=== PATIENT | female | born 1980 | race Caucasian/White ===

== ENCOUNTER → 2016-12-16 | Outpatient (CLI) | payer OTHER ==
--- NOTE | 2016-12-17 14:56 | US ---
EXAM DATE: 12/16/16 PATIENT'S AGE: 36 Patient: KEIRA OSPINA Facility: [place], [place] Site . Site : 1980 Study: US Pelvis [id number]/28/2017 4:50:07 PM Ordering Physician: Juancho Olmedo Final Report: INDICATION: Secondary amenorrhea. TECHNIQUE: Multiple transvaginal sonographic images of the pelvis COMPARISON: None available FINDINGS: Uterus: Retroverted, measuring 7.1 x 3.0 x 4.2 cm. Normal echotexture of the myometrium. No masses. Cervical nabothian cysts. Endometrium: 6 mm in thickness. No sign of endometrial mass or fluid. Right ovary: 4.2 x 2.5 x 2.9 cm. Multiple small ovarian follicles. Normal arterial and venous blood flow. Left ovary: 3.1 x 1.4 x 2.0 cm. Multiple small ovarian follicles. Normal arterial and venous blood flow. Cul-de-sac: No significant free fluid. IMPRESSION: Multiple small follicles in both ovaries. Correlate for polycystic ovarian syndrome, although the ovaries are not significantly enlarged. If indicated, followup detailed evaluation of the ovaries can be considered. Dictated by Alan Belal MD @ 12/16/2016 9:10:13 PM Dictated by: Alan Bella MD @ 12/16/2016 21:10:18 (Electronic Signature) Report Signed by Proxy and Original Signed Document filed in the Medical Record. [facility]Mart
== END ==
LOC: MW.US 15:20
PROVIDERS: ATTEND Nurse Practitioner Women's Health
DX: N91.1 Secondary amenorrhea (principal)
CPT/HCPCS: 76830; 76830-26

== ENCOUNTER 2019-05-31 17:17 | Inpatient (IN) | payer OTHER ==
[2019-05-31] MEDS ORDERED: Butorphanol 1 MG/ML SDV IVPUSH PRN (17:25)
[2019-05-31] MEDS ORDERED: Misoprostol 200 MCG Tab PO PRN (17:25)
[2019-05-31] MEDS ORDERED: Water For Irrigation,Sterile 1,000 ML Container IRR PRN (17:25)
[2019-05-31] MEDS ORDERED: Sodium Chloride 0.9% 2.5 ML Syringe FLUSH PRN (17:25)
[2019-05-31] MEDS ORDERED: Sodium Chloride 0.9% 10 ML Syringe FLUSH PRN (17:25)
[2019-05-31] MEDS ORDERED: Methylergonovine 0.2 MG/1 ML Amp IM PRN (17:25)
[2019-05-31] MEDS ORDERED: Carboprost Tromethamine 250 MCG/1 ML Amp IM PRN (17:25)
[2019-05-31] MEDS ORDERED: Terbutaline 1 MG/ML SDV SUBCUT PRN (17:25)
[2019-05-31] MEDS ORDERED: Sodium Chloride 0.9% 10 ML SDV IV PRN (17:25)
[2019-05-31] MEDS ORDERED: Nalbuphine 10 MG/1 ML Vial IVPUSH PRN (17:25)
[2019-05-31] MEDS ORDERED: Lidocaine 1% 50 ML MDV INJECT PRN (17:25)
[2019-05-31] MEDS ORDERED: Tranexamic Acid 1,000 MG in Sodium Chloride 0.9% 100 ML IV PRN (17:25)
[2019-05-31] MEDS ORDERED: Ondansetron 4 MG/2 ML SDV IVPUSH PRN (17:25)
[2019-05-31] MEDS ORDERED: Oxytocin/0.9 % Sodium Chloride 30 UNIT/500 ML BAG IV SCH ×2 (17:30)
[2019-05-31] MEDS: Misoprostol 25 MCG (1/4 of 100 MCG) Tab VAG PRN ×2 (18:10→23:39)
[2019-05-31] MEDS: Lactated Ringers 1,000 ML IV SCH (22:04)
[2019-06-01] MEDS: Misoprostol 25 MCG (1/4 of 100 MCG) Tab VAG PRN (03:50)
--- NOTE | 2019-06-01 08:17 | PCM.PREANE ---
Preanesthetic Assessment - Anesthesia/Transfusion/Family Hx Anesthesia History: Prior Anesthesia Without Reaction Family History of Anesthesia Reaction: No Transfusion History: No Prior Transfusion(s) - Review of Systems General: No Symptoms Pulmonary: No Symptoms Cardiovascular: No Symptoms Gastrointestinal: No Symptoms Neurological: No Symptoms Other: Reports: None - Physical Assessment Height: 5 ft 7 in Weight: 90.718 kg ASA Class: 2 Mental Status: Alert & Oriented x3 Airway Class: Mallampati = 2 Dentition: Reports: Normal Dentition Thyro-Mental Finger Breadths: 3 Mouth Opening Finger Breadths: 3 ROM/Head Extension: Full Lungs: Clear to Auscultation, Normal Respiratory Effort Cardiovascular: Regular Rate, Regular Rhythm - Lab Values: Laboratory Last Values WBC 11.98 K/uL (4.0-11.0) H 05/31/19 17:48 RBC 4.12 M/uL (4.30-5.90) L 05/31/19 17:48 Hgb 12.5 g/dL (12.0-16.0) 05/31/19 17:48 Hct 37.4 % (36.0-46.0) 05/31/19 17:48 MCV 90.8 fL (80.0-98.0) 05/31/19 17:48 MCH 30.3 pg (27.0-32.0) 05/31/19 17:48 MCHC 33.4 g/dL (31.0-37.0) 05/31/19 17:48 RDW Std Deviation 52.0 fl (28.0-62.0) 05/31/19 17:48 RDW Coeff of Jonatan 16 % (11.0-15.0) H 05/31/19 17:48 Plt Count 255 K/uL (150-400) 05/31/19 17:48 MPV 9.50 fL (7.40-12.00) 05/31/19 17:48 Nucleated RBC % 0.0 /100WBC 05/31/19 17:48 Nucleated RBCs # 0 K/uL 05/31/19 17:48 Urine Color YELLOW 05/31/19 22:40 Urine Appearance CLEAR 05/31/19 22:40 Urine pH 6.0 (5.0-8.0) 05/31/19 22:40 Ur Specific [place] <= 1.005 (1.001-1.035) 05/31/19 22:40 Urine Protein NEGATIVE mg/dL (NEGATIVE) 05/31/19 22:40 Urine Glucose (UA) NEGATIVE mg/dL (NEGATIVE) 05/31/19 22:40 Urine Ketones NEGATIVE mg/dL (NEGATIVE) 05/31/19 22:40 Urine Occult Blood NEGATIVE (NEGATIVE) 05/31/19 22:40 Urine Nitrite NEGATIVE (NEGATIVE) 05/31/19 22:40 Urine Bilirubin NEGATIVE (NEGATIVE) 05/31/19 22:40 Urine Urobilinogen 0.2 EU/dL (<2.0) 05/31/19 22:40 Ur Leukocyte Esterase NEGATIVE (NEGATIVE) 05/31/19 22:40 Blood Type O NEGATIVE 05/31/19 17:48 Antibody Screen NEGATIVE 05/31/19 17:48 - Allergies Allergies/Adverse Reactions: Allergies Allergy/AdvReac Type Severity Reaction Status Date / Time No Known Allergies Allergy Verified 05/31/19 17:40 - Acknowledgements Anesthesia Type Planned: Epidural Pt an Appropriate Candidate for the Planned Anesthesia: Yes Alternatives and Risks of Anesthesia Discussed w Pt/Guardian: Yes Pt/Guardian Understands and Agrees with Anesthesia Plan: Yes PreAnesthesia Questionnaire - Past Health History Medical/Surgical History: Denies Medical/Surgical History HEENT History: Reports: None Cardiovascular History: Reports: None Respiratory History: Reports: None Gastrointestinal History: Reports: GERD Genitourinary History: Reports: None 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: : 1 Para: 0 LMP (Approximate): Musculoskeletal History: Reports: None Neurological History: Reports: None Psychiatric History: Reports: None Endocrine/Metabolic History: Reports: Obesity/BMI 30+ Hematologic History: Reports: None Immunologic History: Reports: None Oncologic (Cancer) History: Reports: None Dermatologic History: Reports: None - Infectious Disease History Infectious Disease History: Reports: None - SUBSTANCE USE Smoking Status *Q: Never Smoker Recreational Drug Use History: No - HOME MEDS Home Medications: Home Meds #103/Iron Fumarate/Fa [ ] 1 tab PO DAILY 05/31/19 [ History] - CURRENT (IN HOUSE) MEDS Current Meds: Current Medications Butorphanol Tartrate (Stadol) 1 mg IVPUSH Q1H PRN PRN Reason: Pain Last Admin: 06/01/19 07:41 Dose: 1 mg Carboprost Tromethamine (Hemabate Ds) 250 mcg IM ASDIRECTED PRN PRN Reason: Post Hemorrhage Lactated Ringer's (Ringers, Lactated) 1,000 mls @ 150 mls/hr IV ASDIRECTED PIPPA Last Admin: 05/31/19 22:04 Dose: 999 mls/hr Oxytocin/Sodium Chloride (Oxytocin 30 Unit/500 Ml-Ns) 30 unit in 500 mls @ 500 mls/hr IV TITRATE PIPPA Oxytocin/Sodium Chloride (Oxytocin 30 Unit/500 Ml-Ns) 30 unit in 500 mls @ 2 mls/hr IV TITRATE PIPPA; Protocol Tranexamic Acid 1,000 mg/ (Sodium Chloride) 110 mls @ 660 mls/hr IV ONETIME PRN PRN Reason: Bleeding Lidocaine HCl (Xylocaine 1%) 50 ml INJECT ONETIME PRN PRN Reason: Laceration repair Methylergonovine Maleate (Methergine) 0.2 mg IM ASDIRECTED PRN PRN Reason: Post Hemorrhage Misoprostol (Cytotec) 200 mcg PO ONETIME PRN PRN Reason: Post Hemorrhage Misoprostol (Cytotec) 25 mcg VAG Q4H PRN PRN Reason: Cervical Ripening Last Admin: 06/01/19 03:50 Dose: 25 mcg Nalbuphine HCl (Nubain) 10 mg IVPUSH Q1H PRN PRN Reason: Pain (severe 7-10) Ondansetron HCl (Zofran) 4 mg IVPUSH Q4H PRN PRN Reason: Nausea/Vomiting Sodium Chloride (Saline Flush) 10 ml FLUSH ASDIRECTED PRN PRN Reason: Keep Vein Open Sodium Chloride (Saline Flush) 2.5 ml FLUSH ASDIRECTED PRN PRN Reason: Keep Vein Open Sodium Chloride (Normal Saline) 10 ml IV ASDIRECTED PRN PRN Reason: IV Use Sterile Water (Sterile Water For Irrigation) 1,000 ml IRR ASDIRECTED PRN PRN Reason: delivery Terbutaline Sulfate (Brethine) 0.25 mg SUBCUT ASDIRECTED PRN PRN Reason: Tacysystole Discontinued Medications Fentanyl/Bupivacaine HCl (Wybhvzzk-Nhyuz-Fm 2 Mcg/Ml-0.125%) Confirm Administered Dose 100 mls @ as directed .ROUTE .[facility] Stop: 06/01/19 07:46
[2019-06-01] MEDS: Lactated Ringers 1,000 ML IV SCH ×2 (08:23→17:59)
[2019-06-01] MEDS ORDERED: Labetalol 100 MG/20 ML MDV IVPUSH ONE (12:16)
[2019-06-01] MEDS ORDERED: Bupivacaine 0.5% 10 ML SDV ONE ×2 (12:18→19:05)
[2019-06-01] MEDS ORDERED: ceFAZolin 1 GM Vial ONE (19:13)
[2019-06-01] MEDS ORDERED: Sodium Chloride 0.9% 20 ML ONE (19:13)
[2019-06-01] MEDS ORDERED: Oxytocin/0.9 % Sodium Chloride 30 UNIT/500 ML BAG ONE (19:17)
[2019-06-01] MEDS ORDERED: Ondansetron 4 MG/2 ML SDV ONE (19:20)
[2019-06-01] MEDS ORDERED: Morphine PF 10 MG/10 ML SDV ONE (19:22)
[2019-06-01] MEDS ORDERED: Nalbuphine 10 MG/1 ML Vial IVPUSH PRN (19:34)
[2019-06-01] MEDS ORDERED: Midazolam 1 MG/ML 2 ML SDV ONE (19:34)
[2019-06-01] MEDS ORDERED: fentaNYL 100 MCG/2 ML SDV IVPUSH PRN (19:34)
[2019-06-01] MEDS ORDERED: Acetaminophen/oxyCODONE 325-5 MG Tab PO PRN ×3 (19:34→20:33)
[2019-06-01] MEDS ORDERED: ePHEDrine 50 MG/ML SDV ONE (20:15)
--- NOTE | 2019-06-01 20:18 | PCM.OPNOTE ---
- General Post-Op/Procedure Note Date of Surgery/Procedure: 06/01/19 Operative Procedure(s): Primary LTCS Findings: section of liveborn female . Apgars 7/9. Weight 3820g. 3vc. Placenta intact. Pre Op Diagnosis: 40/5 IUP induction for AMA/post dates. Primary LTCS for arrest of descent Post-Op Diagnosis: same Anesthesia Technique: Epidural Primary Surgeon: Alyssa Westbrook Patch Sander: Zuleima Bell Role of Patch Sander: 4th year medical student Fluid Replacement, Intraop: 600 Output, Urine Amount: 100 EBL in mLs: 700 Condition: Good
[2019-06-01] MEDS ORDERED: Lanolin 100% Cream 7 GM Tube TOP PRN (20:33)
[2019-06-01] MEDS ORDERED: Aluminum Hydroxide/Magnesium Hydroxide/Simethicone Susp 30 ML Cup PO PRN (20:33)
[2019-06-01] MEDS ORDERED: diphenhydrAMINE 50 MG/ML SDV IVPUSH PRN (20:33)
[2019-06-01] MEDS ORDERED: Ondansetron 4 MG/2 ML SDV IVPUSH PRN (20:33)
[2019-06-01] MEDS ORDERED: Bisacodyl 10 MG Supp RECTAL PRN (20:33)
[2019-06-01] MEDS: Ketorolac 30 MG/ML SDV IVPUSH SCH (20:45)
[2019-06-01] MEDS ORDERED: Lactated Ringers 1,000 ML IV SCH (20:45)
--- NOTE | 2019-06-01 20:49 | PCM.POSTAN ---
POST ANESTHESIA ASSESSMENT - MENTAL STATUS Mental Status: Alert, Oriented - VITAL SIGNS Vital Signs: Last Vital Signs Temp 98.2 F 06/01/19 20:06 Pulse 103 H 06/01/19 20:42 Resp 12 06/01/19 20:42 BP 113/65 06/01/19 20:42 Pulse Ox 100 06/01/19 20:42 - RESPIRATORY Respiratory Status: Respiratory Rate WNL, Airway Patent, O2 Saturation Stable - CARDIOVASCULAR CV Status: Pulse Rate WNL, Blood Pressure Stable - GASTROINTESTINAL GI Status: No Symptoms - PAIN Pain Score: 1 - POST OP HYDRATION Hydration Status: Adequate & Stable
[2019-06-01] MEDS: Docusate Sodium 100 MG Cap PO SCH (23:50)
[2019-06-02] MEDS: Simethicone 80 MG Tab.Chew PO SCH ×4 (00:10→18:19)
[2019-06-02] MEDS: Ketorolac 30 MG/ML SDV IVPUSH SCH ×4 (03:01→21:00)
--- NOTE | 2019-06-02 03:58 | OR ---
SURGEON: Alyssa Westbrook M.D. DATE OF PROCEDURE: 06/01/2019 PREOPERATIVE DIAGNOSES: 1. A 40 and 5 weeks' intrauterine . 2. Arrest of descent. POSTOPERATIVE DIAGNOSES: 1. A 40 and 5 weeks' intrauterine . 2. Arrest of descent. PROCEDURE: Primary low-transverse section. PRIMARY SURGEON: Alyssa Westbrook M.D. BODY AND FENDER MECHANIC: Marla Bell MS4. ANESTHESIA: Epidural. ESTIMATED BLOOD LOSS: 700 mL. FLUIDS: 600 mL of crystalloid in OR. COMPLICATIONS: None. FINDINGS: Viable female. score 7 at 1 minute and 9 at 5 minutes. Weight of 3820 g. Intact placenta, 3-vessel cord, normal-appearing pelvis. DISPOSITION: to [facility], mom in PACU, stable. PROCEDURE DETAILS: Daly is a 39-year-old primigravida at 40 and 4 weeks' gestation, who presented on the evening of 05/31/2019, for scheduled induction of labor due to past-due and advanced maternal age. The patient responded nicely to Cytotec ripening. By the following morning, she was found to be 4 cm. She underwent regional anesthesia in the form of an epidural, had spontaneous rupture of membranes. Clear fluid was noted. Was initiated on Pitocin augmentation. She responded nicely to this and progressed throughout the afternoon hours. Shortly after 4 p.m., she was found to be complete, 100% effaced, +2 station, began pushing efforts. She was able to push to a +3 station. At that time, felt baby to be LOP and rotated to an OA position. Continued with pushing efforts. At the point of pushing for approximately 2.5 hours and still being a +3 station, did discuss with her the option of continuing with pushing efforts, but she is tiring, proceeding with operative vaginal delivery versus . The patient has opted to proceed with an operative vaginal delivery. Risks of vacuum-assisted vaginal delivery were discussed with her and her , including increased risk for maternal vaginal trauma, cephalohematoma, and intracranial bleeding. They voiced understanding and agreed to proceed. position was again palpated. Sagittal suture was palpated. Estimated weight was felt to be 4682-0103 g. The vacuum was gently placed after palpating sutures, and with the next contraction, was able to insufflate to the green zone, released the vacuum between contractions, attempted a vacuum- assisted delivery for approximately 30 minutes of total time, approximately 10 minutes of actual vacuum time. There were 2 pop-offs during this interval. However, we were only able to deliver to a +4 station. At this juncture, I felt that the risk of shoulder dystocia was high given head is not readily delivering. Discussed with the patient, her , and at this junction, they opted to proceed with C- section. Risks of procedure were discussed with her including infection; bleeding; possible trauma to the surrounding bowel, bladder, ureters; in case of excessive blood loss, need for blood transfusion; rare lifesaving circumstances; need for hysterectomy; risk for thromboembolic event; and risk of anesthesia. Proper consent was obtained. Anesthesia and nursing supervisor dock were notified. The patient was taken to the operating room, where she underwent a bolus of her epidural, was placed in dorsal supine position with leftward tilt, and then was placed in a frog-leg position. She was prepped and draped in usual sterile fashion. SCDs to lower extremities. West to gravity. Received Ancef prophylactically. Time-out was performed, was able to elevate the head out of the pelvis prior to proceeding with checking for adequate anesthesia. After the patient was prepped and draped in usual sterile fashion, time-out was performed, anesthesia was found to be adequate. A Pfannenstiel skin incision was now created, carried down to the level of the rectus fascia, which was incised in midline, lateralized to either side sharply and bluntly, superior aspect of the fascia tented upward, dissected sharply and bluntly away from the underlying muscles. In a similar manner, it was performed at the inferior aspect of the fascia. Rectus muscles in the midline. Peritoneum was entered. Rectus muscle and peritoneum were now lateralized. Uterine position and position palpated. Self-retaining retractor was gently placed. Uterovesical reflection was visualized. Bladder flap was created sharply and bluntly. Bladder was mobilized from the lower uterine segment. Labor and Delivery staff was able to provide a vaginal hand with the low transverse hysterotomy was now performed. Uterine cavity was entered with blunt end scalpel. Hysterotomy was lateralized bluntly. While I was attempting to deliver the 's head, the Labor and Delivery staff was able to elevate the head, was able to secure the head, flexed and delivered from the pelvis. The fetus did remain in OA position. The head was delivered followed by anterior shoulder, pushed the remaining of the body. 's oropharynx and nares bulb suctioned. Infant was crying and pink. Cord was clamped x2 and cut. was handed off to the attending complex director. Cord arterial, cord venous, cord blood sampling were obtained. Light pressure was applied while the placenta was now delivered. Uterine cavity was cleared of all clot and debris. Hysterotomy was repaired using 0 Vicryl in continuous running locked fashion followed by re-imbricating layer. Area of oozing along the midline was replicated with 2 [id number] sutures. Hemostasis thereafter evident. Posterior aspect of the uterus inspected. No defects or hematomas found to be forming. The area was well irrigated and suction dried. Uterus was returned to the abdominal cavity. Colonic gutters were cleared of all clot and debris, well irrigated and suction dried. Hysterotomy was once again inspected and found to be hemostatic. Self-retaining retractor now gently removed. The bladder blade was placed and once again inspected the hysterotomy and was once again found to be hemostatic. Rectus muscles and peritoneum were reapproximated using 0 Vicryl with inverted mattress suture technique. Anterior aspect of the muscle and posterior aspect of the fascia closely inspected. Any areas of oozing were cauterized. The rectus fascia was reapproximated using 0 Vicryl in continuous running fashion beginning laterally on either side and meeting in the midline. Subcutaneous tissue was well irrigated and suction dried. Any areas of oozing were now cauterized. The skin edges were reapproximated using 3-0 Vicryl on a Pool needle in subcuticular fashion followed by half-inch Steri-Strips and Mastisol. Uterus remained firm. Sponge, instrument, and needle count was correct x2. The patient tolerated the procedure well overall. She will go to PACU in stable condition, to [facility]. NUNO / RAFAELA /[id number] DORIS
--- NOTE | 2019-06-02 07:20 | PCM.PNPP ---
<Zuleima Bell - Last Filed: 06/02/19 07:20> - General Info Date of Service: 06/02/19 Functional Status: Reports: Pain Controlled, Tolerating Diet, Incentive Spirometry. Denies: Ambulating, Urinating - Review of Systems General: Reports: No Symptoms. Denies: Fever, Chills HEENT: Reports: No Symptoms. Denies: Headaches Pulmonary: Reports: No Symptoms. Denies: Shortness of Breath Cardiovascular: Reports: No Symptoms. Denies: Chest Pain, Palpitations Gastrointestinal: Reports: Abdominal Pain (Incisional soreness ) Genitourinary: Reports: No Symptoms Musculoskeletal: Reports: No Symptoms Skin: Reports: No Symptoms Neurological: Reports: No Symptoms Psychiatric: Reports: No Symptoms - General Info Date of Service: 06/02/19 - Patient Data Vital Signs - Most Recent: Last Vital Signs Temp 97.0 F 06/02/19 04:00 Pulse 87 06/02/19 04:00 Resp 14 06/02/19 06:00 BP 121/73 06/02/19 04:00 Pulse Ox 100 06/02/19 06:00 Weight - Most Recent: 90.718 kg I&O - Last 24 Hours: Intake & Output 06/01/19 06/02/19 06/02/19 22:59 06:59 14:59 Intake Total 1600 923 Output Total 100 1375 Balance 1500 -452 Lab Results - Last 24 Hours: Laboratory Results - last 24 hr 06/01/19 06/02/19 Range/Units 19:28 05:30 Hgb 10.0 L (12.0-16.0) g/dL Hct 30.3 L (36.0-46.0) % Cord ABG pH 7.314 (7.18-7.38) Cord ABG Base Excess -9 (-10--2) Cord VBG pH 7.260 (7.25-7.45) Cord VBG Base Excess -9 (-10--2) Med Orders - Current: Current Medications Al Hydroxide/Mg Hydroxide (Mag-Al Plus) 30 ml PO Q8H PRN PRN Reason: Heartburn Bisacodyl (Dulcolax) 10 mg RECTAL ONETIME PRN PRN Reason: Constipation Carboprost Tromethamine (Hemabate Ds) 250 mcg IM ASDIRECTED PRN PRN Reason: Post Hemorrhage Diphenhydramine HCl (Benadryl) 25 mg IVPUSH Q6H PRN PRN Reason: Itching or Nausea Docusate Sodium (Colace) 100 mg PO BID [facility] Last Admin: 06/01/19 23:50 Dose: Not Given Emollient Ointment (Lansinoh Hpa) 0 gm TOP ASDIRECTED PRN PRN Reason: Sore Nipples Fentanyl (Sublimaze) 50 mcg IVPUSH Q5M PRN PRN Reason: Pain (severe 7-10) Stop: 06/02/19 19:35 Oxytocin/Sodium Chloride (Oxytocin 30 Unit/500 Ml-Ns) 30 unit in 500 mls @ 500 mls/hr IV [facility]ITRATE [facility] Oxytocin/Sodium Chloride (Oxytocin 30 Unit/500 Ml-Ns) 30 unit in 500 mls @ 2 mls/hr IV [facility]; Protocol Last Titration: 06/01/19 18:09 Dose: 20 munits/min, 20 mls/hr Tranexamic Acid 1,000 mg/ (Sodium Chloride) 110 mls @ 660 mls/hr IV ONETIME PRN PRN Reason: Bleeding Lactated Ringer's (Ringers, Lactated) 1,000 mls @ 125 mls/hr IV ASDIRECTED [facility] Last Admin: 06/02/19 02:32 Dose: 125 mls/hr Ibuprofen (Motrin) 800 mg PO Q8H PRN PRN Reason: mild pain or fever Ketorolac Tromethamine (Toradol) 30 mg IVPUSH Q6H [facility] Stop: 06/02/19 21:01 Last Admin: 06/02/19 03:01 Dose: 30 mg Methylergonovine Maleate (Methergine) 0.2 mg IM ASDIRECTED PRN PRN Reason: Post Hemorrhage Nalbuphine HCl (Nubain) 10 mg IVPUSH Q1H PRN PRN Reason: Pain (severe 7-10) Nalbuphine HCl (Nubain) 2.5 mg IVPUSH Q3H PRN PRN Reason: Pruritis Stop: 06/02/19 19:35 Ondansetron HCl (Zofran) 4 mg IVPUSH Q4H PRN PRN Reason: Nausea/Vomiting Oxycodone/Acetaminophen (Percocet 325-5 Mg) 1 tab PO ONETIME PRN PRN Reason: Pain (moderate 4-6) Oxycodone/Acetaminophen (Percocet 325-5 Mg) 1 tab PO Q4H PRN PRN Reason: Pain (moderate 4-6) Oxycodone/Acetaminophen (Percocet 325-5 Mg) 2 tab PO Q4H PRN PRN Reason: Pain (moderate 4-6) Simethicone (Simethicone) 160 mg PO QID [facility] Last Admin: 06/02/19 06:06 Dose: 160 mg Sodium Chloride (Saline Flush) 10 ml FLUSH ASDIRECTED PRN PRN Reason: Keep Vein Open Sodium Chloride (Saline Flush) 2.5 ml FLUSH ASDIRECTED PRN PRN Reason: Keep Vein Open Sodium Chloride (Normal Saline) 10 ml IV ASDIRECTED PRN PRN Reason: IV Use Discontinued Medications Bupivacaine HCl (Sensorcaine-Mpf 0.5%) Confirm Administered Dose 10 ml .ROUTE .STK-MED ONE Stop: 06/01/19 12:19 Bupivacaine HCl (Sensorcaine-Mpf 0.5%) Confirm Administered Dose 20 ml .ROUTE .STK-MED ONE Stop: 06/01/19 19:06 Butorphanol Tartrate (Stadol) 1 mg IVPUSH Q1H PRN PRN Reason: Pain Last Admin: 06/01/19 07:41 Dose: 1 mg Cefazolin Sodium (Ancef) Confirm Administered Dose 2 gm .ROUTE .STK-MED ONE Stop: 06/01/19 19:14 Ephedrine Sulfate (Ephedrine Sulfate) Confirm Administered Dose 50 mg .ROUTE .STK-MED ONE Stop: 06/01/19 20:16 Lactated Ringer's (Ringers, Lactated) 1,000 mls @ 150 mls/hr IV ASDIRECTED [facility] Last Admin: 06/01/19 17:59 Dose: 150 mls/hr Fentanyl/Bupivacaine HCl (Cohqedjg-Wejpg-Kp 2 Mcg/Ml-0.125%) Confirm Administered Dose 100 mls @ as directed .ROUTE .STK-MED ONE Stop: 06/01/19 07:46 Fentanyl/Bupivacaine HCl (Sykifwvx-Dbuer-As 2 Mcg/Ml-0.125%) Confirm Administered Dose 100 mls @ as directed .ROUTE .STK-MED ONE Stop: 06/01/19 15:03 Sodium Chloride (Normal Saline) Confirm Administered Dose 20 mls @ as directed .ROUTE .STK-MED ONE Stop: 06/01/19 19:14 Oxytocin/Sodium Chloride (Oxytocin 30 Unit/500 Ml-Ns) Confirm Administered Dose 30 unit in 500 mls @ as directed .ROUTE .STK-MED ONE Stop: 06/01/19 19:18 Labetalol HCl (Normodyne) 10 mg IVPUSH ONETIME ONE; Protocol Stop: 06/01/19 12:17 Last Admin: 06/01/19 12:34 Dose: 10 mg Lidocaine HCl (Xylocaine 1%) 50 ml INJECT ONETIME PRN PRN Reason: Laceration repair Midazolam HCl (Versed 1 Mg/Ml) Confirm Administered Dose 2 mg .ROUTE .STK-MED ONE Stop: 06/01/19 19:35 Misoprostol (Cytotec) 200 mcg PO ONETIME PRN PRN Reason: Post Hemorrhage Misoprostol (Cytotec) 25 mcg VAG Q4H PRN PRN Reason: Cervical Ripening Last Admin: 06/01/19 03:50 Dose: 25 mcg Morphine Sulfate (Duramorph Pf) Confirm Administered Dose 10 mg .ROUTE .STK-MED ONE Stop: 06/01/19 19:23 Ondansetron HCl (Zofran) 4 mg IVPUSH Q4H PRN PRN Reason: Nausea/Vomiting Ondansetron HCl (Zofran) Confirm Administered Dose 4 mg .ROUTE .STK-MED ONE Stop: 06/01/19 19:21 Sterile Water (Sterile Water For Irrigation) 1,000 ml IRR ASDIRECTED PRN PRN Reason: delivery Terbutaline Sulfate (Brethine) 0.25 mg SUBCUT ASDIRECTED PRN PRN Reason: Tacysystole - Infant Interaction Infant Disposition, : [facility] to [facility] Interaction: Unable to Hold Infant at this Time Feeding: Other (see below) (Has not attempted BF yet as infant in nursery. Pumped 1mL. Will attempt today) Support Person: - Recovery Exam Fundal Tone: Firm Fundal Level: 1 Fingerbreadths Below Umbilicus Fundal Placement: Midline Lochia Amount: None Lochia Color: Rubra/Red Perineum Description: Intact, Minimal Bruising/Swelling, Edematous Episiotomy/Laceration: None Bladder Status: Indwelling Catheter in Place Urinary Elimination: Indwelling Catheter - Exam General: Alert, Oriented HEENT: Pupils Equal Neck: Supple Lungs: Clear to Auscultation, Normal Respiratory Effort Cardiovascular: Regular Rate, Regular Rhythm GI/Abdominal Exam: Normal Bowel Sounds, Soft, Non-Tender, No Organomegaly, No Distention, No Abnormal Bruit, No Mass, Pelvis Stable Extremities: Normal Inspection, Normal Range of Motion, Non-Tender, No Pedal Edema, Normal Capillary Refill Skin: Warm, Dry, Intact Wound/Incisions: Dressing Dry and Intact Neurological: No New Focal Deficit Psy/Mental Status: Alert, Normal Affect, Normal Mood - Problem List & Annotations (1) delivery delivered SNOMED Code(s): 881251082 Code(s): O82 - ENCOUNTER FOR DELIVERY WITHOUT INDICATION Status: Acute Current Visit: Yes - Problem List Review Problem List Initiated/Reviewed/Updated: Yes - Assessment Assessment:: POD1 from primary LTCS for arrest of descent Pain well controlled Has not attempted yet Catheter in place - has not ambulated yet Scant lochia rubra - Plan Plan:: Regular diet as tolerated Pain control PRN Incentive spirometer Encourage ambulation today after catheter removal Routine care Anticipate discharge POD2-3 <Alyssa Westbrook - Last Filed: 06/02/19 12:23> - Patient Data Vital Signs - Most Recent: Last Vital Signs Temp 37.2 C 06/02/19 11:57 Pulse 113 H 06/02/19 11:57 Resp 17 06/02/19 11:57 BP 148/79 H 06/02/19 11:57 Pulse Ox 97 06/02/19 11:57 I&O - Last 24 Hours: Intake & Output 06/01/19 06/02/19 06/02/19 22:59 06:59 14:59 Intake Total 1600 923 Output Total 100 1375 1200 Balance 1500 -452 -1200 Lab Results - Last 24 Hours: Laboratory Results - last 24 hr 06/01/19 06/02/19 Range/Units 19:28 05:30 Hgb 10.0 L (12.0-16.0) g/dL Hct 30.3 L (36.0-46.0) % Cord ABG pH 7.314 (7.18-7.38) Cord ABG Base Excess -9 (-10--2) Cord VBG pH 7.260 (7.25-7.45) Cord VBG Base Excess -9 (-10--2) Med Orders - Current: Current Medications Al Hydroxide/Mg Hydroxide (Mag-Al Plus) 30 ml PO Q8H PRN PRN Reason: Heartburn Bisacodyl (Dulcolax) 10 mg RECTAL ONETIME PRN PRN Reason: Constipation Carboprost Tromethamine (Hemabate Ds) 250 mcg IM ASDIRECTED PRN PRN Reason: Post Hemorrhage Diphenhydramine HCl (Benadryl) 25 mg IVPUSH Q6H PRN PRN Reason: Itching or Nausea Docusate Sodium (Colace) 100 mg PO BID [facility] Last Admin: 06/02/19 09:36 Dose: 100 mg Emollient Ointment (Lansinoh Hpa) 0 gm TOP ASDIRECTED PRN PRN Reason: Sore Nipples Fentanyl (Sublimaze) 50 mcg IVPUSH Q5M PRN PRN Reason: Pain (severe 7-10) Stop: 06/02/19 19:35 Oxytocin/Sodium Chloride (Oxytocin 30 Unit/500 Ml-Ns) 30 unit in 500 mls @ 500 mls/hr IV [facility] Oxytocin/Sodium Chloride (Oxytocin 30 Unit/500 Ml-Ns) 30 unit in 500 mls @ 2 mls/hr IV [facility]; Protocol Last Titration: 06/01/19 18:09 Dose: 20 munits/min, 20 mls/hr Tranexamic Acid 1,000 mg/ (Sodium Chloride) 110 mls @ 660 mls/hr IV ONETIME PRN PRN Reason: Bleeding Lactated Ringer's (Ringers, Lactated) 1,000 mls @ 125 mls/hr IV ASDIRECTED [facility] Last Admin: 06/02/19 02:32 Dose: 125 mls/hr Ibuprofen (Motrin) 800 mg PO Q8H PRN PRN Reason: mild pain or fever Ketorolac Tromethamine (Toradol) 30 mg IVPUSH Q6H [facility] Stop: 06/02/19 21:01 Last Admin: 06/02/19 09:37 Dose: 30 mg Methylergonovine Maleate (Methergine) 0.2 mg IM ASDIRECTED PRN PRN Reason: Post Hemorrhage Nalbuphine HCl (Nubain) 10 mg IVPUSH Q1H PRN PRN Reason: Pain (severe 7-10) Nalbuphine HCl (Nubain) 2.5 mg IVPUSH Q3H PRN PRN Reason: Pruritis Stop: 06/02/19 19:35 Ondansetron HCl (Zofran) 4 mg IVPUSH Q4H PRN PRN Reason: Nausea/Vomiting Oxycodone/Acetaminophen (Percocet 325-5 Mg) 1 tab PO ONETIME PRN PRN Reason: Pain (moderate 4-6) Oxycodone/Acetaminophen (Percocet 325-5 Mg) 1 tab PO Q4H PRN PRN Reason: Pain (moderate 4-6) Oxycodone/Acetaminophen (Percocet 325-5 Mg) 2 tab PO Q4H PRN PRN Reason: Pain (moderate 4-6) Simethicone (Simethicone) 160 mg PO QID [facility] Last Admin: 06/02/19 06:06 Dose: 160 mg Sodium Chloride (Saline Flush) 10 ml FLUSH ASDIRECTED PRN PRN Reason: Keep Vein Open Sodium Chloride (Saline Flush) 2.5 ml FLUSH ASDIRECTED PRN PRN Reason: Keep Vein Open Sodium Chloride (Normal Saline) 10 ml IV ASDIRECTED PRN PRN Reason: IV Use Discontinued Medications Bupivacaine HCl (Sensorcaine-Mpf 0.5%) Confirm Administered Dose 10 ml .ROUTE .STK-MED ONE Stop: 06/01/19 12:19 Bupivacaine HCl (Sensorcaine-Mpf 0.5%) Confirm Administered Dose 20 ml .ROUTE .STK-MED ONE Stop: 06/01/19 19:06 Butorphanol Tartrate (Stadol) 1 mg IVPUSH Q1H PRN PRN Reason: Pain Last Admin: 06/01/19 07:41 Dose: 1 mg Cefazolin Sodium (Ancef) Confirm Administered Dose 2 gm .ROUTE .STK-MED ONE Stop: 06/01/19 19:14 Ephedrine Sulfate (Ephedrine Sulfate) Confirm Administered Dose 50 mg .ROUTE .STK-MED ONE Stop: 06/01/19 20:16 Lactated Ringer's (Ringers, Lactated) 1,000 mls @ 150 mls/hr IV ASDIRECTED [facility] Last Admin: 06/01/19 17:59 Dose: 150 mls/hr Fentanyl/Bupivacaine HCl (Ayyfxpkk-Cvygw-Nz 2 Mcg/Ml-0.125%) Confirm Administered Dose 100 mls @ as directed .ROUTE .STK-MED ONE Stop: 06/01/19 07:46 Fentanyl/Bupivacaine HCl (Wysywwsc-Clswf-Ze 2 Mcg/Ml-0.125%) Confirm Administered Dose 100 mls @ as directed .ROUTE .STK-MED ONE Stop: 06/01/19 15:03 Sodium Chloride (Normal Saline) Confirm Administered Dose 20 mls @ as directed .ROUTE .STK-MED ONE Stop: 06/01/19 19:14 Oxytocin/Sodium Chloride (Oxytocin 30 Unit/500 Ml-Ns) Confirm Administered Dose 30 unit in 500 mls @ as directed .ROUTE .STK-MED ONE Stop: 06/01/19 19:18 Labetalol HCl (Normodyne) 10 mg IVPUSH ONETIME ONE; Protocol Stop: 06/01/19 12:17 Last Admin: 06/01/19 12:34 Dose: 10 mg Lidocaine HCl (Xylocaine 1%) 50 ml INJECT ONETIME PRN PRN Reason: Laceration repair Midazolam HCl (Versed 1 Mg/Ml) Confirm Administered Dose 2 mg .ROUTE .STK-MED ONE Stop: 06/01/19 19:35 Misoprostol (Cytotec) 200 mcg PO ONETIME PRN PRN Reason: Post Hemorrhage Misoprostol (Cytotec) 25 mcg VAG Q4H PRN PRN Reason: Cervical Ripening Last Admin: 06/01/19 03:50 Dose: 25 mcg Morphine Sulfate (Duramorph Pf) Confirm Administered Dose 10 mg .ROUTE .STK-MED ONE Stop: 06/01/19 19:23 Ondansetron HCl (Zofran) 4 mg IVPUSH Q4H PRN PRN Reason: Nausea/Vomiting Ondansetron HCl (Zofran) Confirm Administered Dose 4 mg .ROUTE .STK-MED ONE Stop: 06/01/19 19:21 Sterile Water (Sterile Water For Irrigation) 1,000 ml IRR ASDIRECTED PRN PRN Reason: delivery Terbutaline Sulfate (Brethine) 0.25 mg SUBCUT ASDIRECTED PRN PRN Reason: Tacysystole - My Orders Last 24 Hours: My Active Orders 06/01/19 20:33 Patient Status [ADT] Routine Ambulate [RC] PER UNIT ROUTINE Antiembolic Devices [RC] PER UNIT ROUTINE Communication Order [RC] PER UNIT ROUTINE Communication Order [RC] PER UNIT ROUTINE Communication Order [RC] Per Unit Routine May Shower [RC] ASDIRECTED Notify Provider Intake and Out [RC] ASDIRECTED Notify Provider Vital Signs [RC] ASDIRECTED RT Incentive Spirometry [RC] Q2HWA Vital Signs [RC] PER UNIT ROUTINE Acetaminophen/oxyCODONE [Percocet 325-5 MG] 1 tab PO Q4H PRN Acetaminophen/oxyCODONE [Percocet 325-5 MG] 2 tab PO Q4H PRN Alum Hydrox/Mag Hydrox/Simeth [Mag-Al Plus] 30 ml PO Q8H PRN Bisacodyl [Dulcolax] 10 mg RECTAL ONETIME PRN Lanolin [Lansinoh HPA] See Dose Instructions TOP ASDIRECTED PRN Ondansetron [Zofran] 4 mg IVPUSH Q4H PRN diphenhydrAMINE [Benadryl] 25 mg IVPUSH Q6H PRN Abdominal Binder [OM.PC] Routine Assess Lochia [WOMSER] Per Unit Routine Assess Uterine Involution [WOMSER] Per Unit Routine Breast Pump [WOMSER] Per Unit Routine Heat Therapy [OM.PC] Routine Ice Therapy [OM.PC] Routine Peripheral IV Discontinue [OM.PC] Routine Sequential Compression Device [OM.PC] Per Unit Routine 06/01/19 20:45 Lactated Ringers [Ringers, Lactated] 1,000 ml IV ASDIRECTED 06/01/19 21:00 Docusate Sodium [Colace] 100 mg PO BID Ketorolac [Toradol] 30 mg IVPUSH Q6H 06/01/19 Dinner Regular Diet [DIET] 06/02/19 00:00 Simethicone 160 mg PO QID 06/03/19 03:00 Ibuprofen [Motrin] 800 mg PO Q8H PRN - Plan Plan:: Patient seen and examined--agree with above. Infant is being transferred to NICU , thus will anticipate discharge in the morning for patient.
--- NOTE | 2019-06-02 07:28 | PCM48HPAN ---
Post Anesthesia Note - EVALUATION WITHIN 48HRS OF ANESTHETIC Vital Signs in Normal Range: Yes Patient Participated in Evaluation: Yes Respiratory Function Stable: Yes Airway Patent: Yes Cardiovascular Function Stable: Yes Hydration Status Stable: Yes Pain Control Satisfactory: Yes Nausea and Vomiting Control Satisfactory: Yes Mental Status Recovered: Yes Vital Signs: Last Vital Signs Temp 97.9 F 06/02/19 07:20 Pulse 92 06/02/19 07:20 Resp 18 06/02/19 07:20 BP 120/81 06/02/19 07:20 Pulse Ox 98 06/02/19 07:20
[2019-06-02] MEDS: Docusate Sodium 100 MG Cap PO SCH ×2 (09:36→21:00)
[2019-06-03] MEDS: Simethicone 80 MG Tab.Chew PO SCH (00:10)
[2019-06-03] MEDS ORDERED: Ibuprofen 800 MG Tab PO PRN (03:00)
--- NOTE | 2019-06-03 07:15 | PCM.PNPP ---
<Zuleima Bell - Last Filed: 06/03/19 07:11> - General Info Date of Service: 06/03/19 Functional Status: Reports: Pain Controlled - Review of Systems General: Reports: No Symptoms. Denies: Fever, Chills HEENT: Reports: No Symptoms. Denies: Headaches Pulmonary: Reports: No Symptoms. Denies: Shortness of Breath Cardiovascular: Reports: No Symptoms. Denies: Chest Pain, Palpitations Gastrointestinal: Reports: Abdominal Pain (mild cramping and incisional pain, well controlled) Genitourinary: Reports: No Symptoms Musculoskeletal: Reports: No Symptoms Skin: Reports: No Symptoms Neurological: Reports: No Symptoms Psychiatric: Reports: No Symptoms - General Info Date of Service: 06/03/19 - Patient Data Vital Signs - Most Recent: Last Vital Signs Temp 97.8 F 06/03/19 04:35 Pulse 100 06/03/19 04:35 Resp 17 06/03/19 04:35 BP 142/84 H 06/03/19 04:35 Pulse Ox 97 06/03/19 04:35 Weight - Most Recent: 90.718 kg I&O - Last 24 Hours: Intake & Output 06/02/19 06/03/19 06/03/19 22:59 06:59 14:59 Output Total 1450 Balance -1450 Med Orders - Current: Current Medications Al Hydroxide/Mg Hydroxide (Mag-Al Plus) 30 ml PO Q8H PRN PRN Reason: Heartburn Bisacodyl (Dulcolax) 10 mg RECTAL ONETIME PRN PRN Reason: Constipation Carboprost Tromethamine (Hemabate Ds) 250 mcg IM ASDIRECTED PRN PRN Reason: Post Hemorrhage Diphenhydramine HCl (Benadryl) 25 mg IVPUSH Q6H PRN PRN Reason: Itching or Nausea Docusate Sodium (Colace) 100 mg PO BID [facility] Last Admin: 06/02/19 21:00 Dose: 100 mg Emollient Ointment (Lansinoh Hpa) 0 gm TOP ASDIRECTED PRN PRN Reason: Sore Nipples Oxytocin/Sodium Chloride (Oxytocin 30 Unit/500 Ml-Ns) 30 unit in 500 mls @ 500 mls/hr IV TITRATE [facility] Oxytocin/Sodium Chloride (Oxytocin 30 Unit/500 Ml-Ns) 30 unit in 500 mls @ 2 mls/hr IV TITRATE [facility]; Protocol Last Titration: 06/01/19 18:09 Dose: 20 munits/min, 20 mls/hr Tranexamic Acid 1,000 mg/ (Sodium Chloride) 110 mls @ 660 mls/hr IV ONETIME PRN PRN Reason: Bleeding Lactated Ringer's (Ringers, Lactated) 1,000 mls @ 125 mls/hr IV ASDIRECTED [facility] Last Admin: 06/02/19 02:32 Dose: 125 mls/hr Ibuprofen (Motrin) 800 mg PO Q8H PRN PRN Reason: mild pain or fever Last Admin: 06/03/19 05:09 Dose: 800 mg Methylergonovine Maleate (Methergine) 0.2 mg IM ASDIRECTED PRN PRN Reason: Post Hemorrhage Nalbuphine HCl (Nubain) 10 mg IVPUSH Q1H PRN PRN Reason: Pain (severe 7-10) Ondansetron HCl (Zofran) 4 mg IVPUSH Q4H PRN PRN Reason: Nausea/Vomiting Oxycodone/Acetaminophen (Percocet 325-5 Mg) 1 tab PO ONETIME PRN PRN Reason: Pain (moderate 4-6) Oxycodone/Acetaminophen (Percocet 325-5 Mg) 1 tab PO Q4H PRN PRN Reason: Pain (moderate 4-6) Oxycodone/Acetaminophen (Percocet 325-5 Mg) 2 tab PO Q4H PRN PRN Reason: Pain (moderate 4-6) Simethicone (Simethicone) 160 mg PO QID [facility] Last Admin: 06/03/19 00:10 Dose: 160 mg Sodium Chloride (Saline Flush) 10 ml FLUSH ASDIRECTED PRN PRN Reason: Keep Vein Open Sodium Chloride (Saline Flush) 2.5 ml FLUSH ASDIRECTED PRN PRN Reason: Keep Vein Open Sodium Chloride (Normal Saline) 10 ml IV ASDIRECTED PRN PRN Reason: IV Use Discontinued Medications Bupivacaine HCl (Sensorcaine-Mpf 0.5%) Confirm Administered Dose 10 ml .ROUTE .STK-MED ONE Stop: 06/01/19 12:19 Bupivacaine HCl (Sensorcaine-Mpf 0.5%) Confirm Administered Dose 20 ml .ROUTE .STK-MED ONE Stop: 06/01/19 19:06 Butorphanol Tartrate (Stadol) 1 mg IVPUSH Q1H PRN PRN Reason: Pain Last Admin: 06/01/19 07:41 Dose: 1 mg Cefazolin Sodium (Ancef) Confirm Administered Dose 2 gm .ROUTE .STK-MED ONE Stop: 06/01/19 19:14 Ephedrine Sulfate (Ephedrine Sulfate) Confirm Administered Dose 50 mg .ROUTE .STK-MED ONE Stop: 06/01/19 20:16 Fentanyl (Sublimaze) 50 mcg IVPUSH Q5M PRN PRN Reason: Pain (severe 7-10) Stop: 06/02/19 19:35 Lactated Ringer's (Ringers, Lactated) 1,000 mls @ 150 mls/hr IV ASDIRECTED [facility] Last Admin: 06/01/19 17:59 Dose: 150 mls/hr Fentanyl/Bupivacaine HCl ([id number]-Jt 2 Mcg/Ml-0.125%) Confirm Administered Dose 100 mls @ as directed .ROUTE .STK-MED ONE Stop: 06/01/19 07:46 Fentanyl/Bupivacaine HCl ([id number]-Ejyql-Cz 2 Mcg/Ml-0.125%) Confirm Administered Dose 100 mls @ as directed .ROUTE .STK-MED ONE Stop: 06/01/19 15:03 Sodium Chloride (Normal Saline) Confirm Administered Dose 20 mls @ as directed .ROUTE .STK-MED ONE Stop: 06/01/19 19:14 Oxytocin/Sodium Chloride (Oxytocin 30 Unit/500 Ml-Ns) Confirm Administered Dose 30 unit in 500 mls @ as directed .ROUTE .STK-MED ONE Stop: 06/01/19 19:18 Ketorolac Tromethamine (Toradol) 30 mg IVPUSH Q6H [facility] Stop: 06/02/19 21:01 Last Admin: 06/02/19 21:00 Dose: 30 mg Labetalol HCl (Normodyne) 10 mg IVPUSH ONETIME ONE; Protocol Stop: 06/01/19 12:17 Last Admin: 06/01/19 12:34 Dose: 10 mg Lidocaine HCl (Xylocaine 1%) 50 ml INJECT ONETIME PRN PRN Reason: Laceration repair Midazolam HCl (Versed 1 Mg/Ml) Confirm Administered Dose 2 mg .ROUTE .STK-MED ONE Stop: 06/01/19 19:35 Misoprostol (Cytotec) 200 mcg PO ONETIME PRN PRN Reason: Post Hemorrhage Misoprostol (Cytotec) 25 mcg VAG Q4H PRN PRN Reason: Cervical Ripening Last Admin: 06/01/19 03:50 Dose: 25 mcg Morphine Sulfate (Duramorph Pf) Confirm Administered Dose 10 mg .ROUTE .STK-MED ONE Stop: 06/01/19 19:23 Nalbuphine HCl (Nubain) 2.5 mg IVPUSH Q3H PRN PRN Reason: Pruritis Stop: 06/02/19 19:35 Ondansetron HCl (Zofran) 4 mg IVPUSH Q4H PRN PRN Reason: Nausea/Vomiting Ondansetron HCl (Zofran) Confirm Administered Dose 4 mg .ROUTE .STK-MED ONE Stop: 06/01/19 19:21 Sterile Water (Sterile Water For Irrigation) 1,000 ml IRR ASDIRECTED PRN PRN Reason: delivery Terbutaline Sulfate (Brethine) 0.25 mg SUBCUT ASDIRECTED PRN PRN Reason: Tacysystole - Interaction Infant Disposition, : Not Applicable ( flown to NICU) Interaction: Unable to Hold Infant at this Time Feeding: Other (see below) (Unable to breastfeed as infant was flown to NICU. Pumping small amounts of breast milk. ) Support Person: - Recovery Exam Fundal Tone: Firm Fundal Level: 1 Fingerbreadths Below Umbilicus Fundal Placement: Midline Lochia Amount: Scant Lochia Color: Rubra/Red Perineum Description: Intact, Minimal Bruising/Swelling Episiotomy/Laceration: None Bladder Status: Voiding Urinary Elimination: Voided - Exam General: Alert, Oriented HEENT: Pupils Equal Neck: Supple Lungs: Clear to Auscultation, Normal Respiratory Effort Cardiovascular: Regular Rate, Regular Rhythm GI/Abdominal Exam: Normal Bowel Sounds, Soft, Non-Tender, No Organomegaly, No Distention, No Abnormal Bruit, No Mass, Pelvis Stable Extremities: Normal Inspection, Normal Range of Motion, Non-Tender, No Pedal Edema, Normal Capillary Refill Skin: Warm, Dry, Intact Wound/Incisions: Healing Well Neurological: No New Focal Deficit Psy/Mental Status: Alert, Normal Affect, Normal Mood - Problem List & Annotations (1) delivery delivered SNOMED Code(s): 192885612 Code(s): O82 - ENCOUNTER FOR DELIVERY WITHOUT INDICATION Status: Acute Current Visit: Yes - Problem List Review Problem List Initiated/Reviewed/Updated: Yes - Assessment Assessment:: POD2 from primary LTCS for arrest of descent Pain well controlled Unable to breastfeed as was flown to NICU. Pumping small amounts of breast milk. Scant lochia rubra - Plan Plan:: Regular diet Pain control PRN Patient will discharge this morning - flown to NICU <Alyssa Westbrook - Last Filed: 06/03/19 08:53> - Patient Data Vital Signs - Most Recent: Last Vital Signs Temp 36.4 C 06/03/19 07:10 Pulse 107 H 06/03/19 07:10 Resp 17 06/03/19 07:10 BP 125/89 06/03/19 07:10 Pulse Ox 98 06/03/19 07:10 I&O - Last 24 Hours: Intake & Output 06/02/19 06/03/19 06/03/19 22:59 06:59 14:59 Output Total 1450 Balance -1450 Med Orders - Current: Current Medications Al Hydroxide/Mg Hydroxide (Mag-Al Plus) 30 ml PO Q8H PRN PRN Reason: Heartburn Bisacodyl (Dulcolax) 10 mg RECTAL ONETIME PRN PRN Reason: Constipation Carboprost Tromethamine (Hemabate Ds) 250 mcg IM ASDIRECTED PRN PRN Reason: Post Hemorrhage Diphenhydramine HCl (Benadryl) 25 mg IVPUSH Q6H PRN PRN Reason: Itching or Nausea Docusate Sodium (Colace) 100 mg PO BID [facility] Last Admin: 06/03/19 08:17 Dose: 100 mg Emollient Ointment (Lansinoh Hpa) 0 gm TOP ASDIRECTED PRN PRN Reason: Sore Nipples Oxytocin/Sodium Chloride (Oxytocin 30 Unit/500 Ml-Ns) 30 unit in 500 mls @ 500 mls/hr IV TITRATE [facility] Oxytocin/Sodium Chloride (Oxytocin 30 Unit/500 Ml-Ns) 30 unit in 500 mls @ 2 mls/hr IV TITRATE [facility]; Protocol Last Titration: 06/01/19 18:09 Dose: 20 munits/min, 20 mls/hr Tranexamic Acid 1,000 mg/ (Sodium Chloride) 110 mls @ 660 mls/hr IV ONETIME PRN PRN Reason: Bleeding Lactated Ringer's (Ringers, Lactated) 1,000 mls @ 125 mls/hr IV ASDIRECTED [facility] Last Admin: 06/02/19 02:32 Dose: 125 mls/hr Ibuprofen (Motrin) 800 mg PO Q8H PRN PRN Reason: mild pain or fever Last Admin: 06/03/19 05:09 Dose: 800 mg Methylergonovine Maleate (Methergine) 0.2 mg IM ASDIRECTED PRN PRN Reason: Post Hemorrhage Nalbuphine HCl (Nubain) 10 mg IVPUSH Q1H PRN PRN Reason: Pain (severe 7-10) Ondansetron HCl (Zofran) 4 mg IVPUSH Q4H PRN PRN Reason: Nausea/Vomiting Oxycodone/Acetaminophen (Percocet 325-5 Mg) 1 tab PO ONETIME PRN PRN Reason: Pain (moderate 4-6) Last Admin: 06/03/19 08:17 Dose: 1 tab Oxycodone/Acetaminophen (Percocet 325-5 Mg) 1 tab PO Q4H PRN PRN Reason: Pain (moderate 4-6) Oxycodone/Acetaminophen (Percocet 325-5 Mg) 2 tab PO Q4H PRN PRN Reason: Pain (moderate 4-6) Simethicone (Simethicone) 160 mg PO QID [facility] Last Admin: 06/03/19 00:10 Dose: 160 mg Sodium Chloride (Saline Flush) 10 ml FLUSH ASDIRECTED PRN PRN Reason: Keep Vein Open Sodium Chloride (Saline Flush) 2.5 ml FLUSH ASDIRECTED PRN PRN Reason: Keep Vein Open Sodium Chloride (Normal Saline) 10 ml IV ASDIRECTED PRN PRN Reason: IV Use Discontinued Medications Bupivacaine HCl (Sensorcaine-Mpf 0.5%) Confirm Administered Dose 10 ml .ROUTE .STK-MED ONE Stop: 06/01/19 12:19 Bupivacaine HCl (Sensorcaine-Mpf 0.5%) Confirm Administered Dose 20 ml .ROUTE .STK-MED ONE Stop: 06/01/19 19:06 Butorphanol Tartrate (Stadol) 1 mg IVPUSH Q1H PRN PRN Reason: Pain Last Admin: 06/01/19 07:41 Dose: 1 mg Cefazolin Sodium (Ancef) Confirm Administered Dose 2 gm .ROUTE .STK-MED ONE Stop: 06/01/19 19:14 Ephedrine Sulfate (Ephedrine Sulfate) Confirm Administered Dose 50 mg .ROUTE .STK-MED ONE Stop: 06/01/19 20:16 Fentanyl (Sublimaze) 50 mcg IVPUSH Q5M PRN PRN Reason: Pain (severe 7-10) Stop: 06/02/19 19:35 Lactated Ringer's (Ringers, Lactated) 1,000 mls @ 150 mls/hr IV ASDIRECTED [facility] Last Admin: 06/01/19 17:59 Dose: 150 mls/hr Fentanyl/Bupivacaine HCl ([id number]-Hkwsk-Hk 2 Mcg/Ml-0.125%) Confirm Administered Dose 100 mls @ as directed .ROUTE .STK-MED ONE Stop: 06/01/19 07:46 Fentanyl/Bupivacaine HCl ([id number]-Mgfig-Go 2 Mcg/Ml-0.125%) Confirm Administered Dose 100 mls @ as directed .ROUTE .STK-MED ONE Stop: 06/01/19 15:03 Sodium Chloride (Normal Saline) Confirm Administered Dose 20 mls @ as directed .ROUTE .STK-MED ONE Stop: 06/01/19 19:14 Oxytocin/Sodium Chloride (Oxytocin 30 Unit/500 Ml-Ns) Confirm Administered Dose 30 unit in 500 mls @ as directed .ROUTE .STK-MED ONE Stop: 06/01/19 19:18 Ketorolac Tromethamine (Toradol) 30 mg IVPUSH Q6H [facility] Stop: 06/02/19 21:01 Last Admin: 06/02/19 21:00 Dose: 30 mg Labetalol HCl (Normodyne) 10 mg IVPUSH ONETIME ONE; Protocol Stop: 06/01/19 12:17 Last Admin: 06/01/19 12:34 Dose: 10 mg Lidocaine HCl (Xylocaine 1%) 50 ml INJECT ONETIME PRN PRN Reason: Laceration repair Midazolam HCl (Versed 1 Mg/Ml) Confirm Administered Dose 2 mg .ROUTE .STK-MED ONE Stop: 06/01/19 19:35 Misoprostol (Cytotec) 200 mcg PO ONETIME PRN PRN Reason: Post Hemorrhage Misoprostol (Cytotec) 25 mcg VAG Q4H PRN PRN Reason: Cervical Ripening Last Admin: 06/01/19 03:50 Dose: 25 mcg Morphine Sulfate (Duramorph Pf) Confirm Administered Dose 10 mg .ROUTE .STK-MED ONE Stop: 06/01/19 19:23 Nalbuphine HCl (Nubain) 2.5 mg IVPUSH Q3H PRN PRN Reason: Pruritis Stop: 06/02/19 19:35 Ondansetron HCl (Zofran) 4 mg IVPUSH Q4H PRN PRN Reason: Nausea/Vomiting Ondansetron HCl (Zofran) Confirm Administered Dose 4 mg .ROUTE .STK-MED ONE Stop: 06/01/19 19:21 Sterile Water (Sterile Water For Irrigation) 1,000 ml IRR ASDIRECTED PRN PRN Reason: delivery Terbutaline Sulfate (Brethine) 0.25 mg SUBCUT ASDIRECTED PRN PRN Reason: Tacysystole - My Orders Last 24 Hours: My Active Orders 06/03/19 03:00 Ibuprofen [Motrin] 800 mg PO Q8H PRN 06/03/19 08:49 Ready for Discharge [RC] PER UNIT ROUTINE - Plan Plan:: Patient seen and examined--she is doing wel overall. She is ambulating, tolerating diet. Her pain is controlled with oral pain meds. She is voiding easily and passing flatus. She feels she is ready to go today. Discharge instructions reviewed. Follow up at [facility] 2 and 6 weeks. She is travelling to [place], where has been transferred for NICU services. Travel precautions reviewed. She understands she is at increased risk for DVT--she has compression socks and agrees to ambulate every 2 hours.
[2019-06-03] MEDS: Docusate Sodium 100 MG Cap PO SCH (08:17)
== END 2019-06-03 09:00 | disposition home or self-care (01) | DRG 788 ==
LOC: MW.OB 17:17 → OBSVTOIN 19:28 → MW.OB 06-01 22:43
PROVIDERS: ADMIT Obstetrics & Gynecology; ATTEND Obstetrics & Gynecology
PROC: 10D00Z1 Extraction of Products of Conception, Low, Open Approach (ICD-10-PCS; principal; 2019-06-01)
PROC: 4A1HXCZ Monitoring of Products of Conception, Cardiac Rate, External Approach (ICD-10-PCS; 2019-06-01)
PROC: 10H07YZ Insertion of Other Device into Products of Conception, Via Natural or Artificial Opening (ICD-10-PCS; 2019-06-01)
DX: O48.0 Post-term pregnancy (principal); Z37.0 Single live birth; O62.1 Secondary uterine inertia; O99.214 Obesity complicating childbirth; E66.9 Obesity, unspecified; Z3A.40 40 weeks gestation of pregnancy
CPT/HCPCS: 36415; 51702; 59025; 81003; 82803; 85014; 85018; 85027; 86850; 86900; 86901; A9270-GY; J0595; J0690; J1885; J2250; J2270; J2405; J2590; J3490; J7120